=== PATIENT | female | born 1980 | race African-American/Black ===

== ENCOUNTER 2018-01-01 05:41 | Emergency (ER) | payer MEDICARE ==
[~2018-01-01] VITALS: Ht 167.6 cm; Wt 59.0 kg
--- OUTSIDE RECORDS SUMMARY | 2018-01-01 05:44 | XMS REPORT ---
Author Author [facility] Address Unknown Phone Unavailable Care Team Providers Care Home Energy Auditor Name Role Phone TROY TREVINO Unavailable Unavailable VENKATA MONTANEZ Unavailable Unavailable PHILIPP LAIRD Unavailable Unavailable FADUMO, LIZZY Unavailable Unavailable Problems This patient has no known problems. Allergies, Adverse Reactions, Alerts This patient has no known allergies or adverse reactions. Medications This patient has no known medications. Results Test Description Test Time Test Comments Text Results Atomic Results Result Comments BLOOD CULTURE 2017-11-19 10:00:00 CULTURE (BEAKER) (test rrfm=7196) No growth in 5 days CBC W/PLT COUNT & AUTO [id number] 13:24:00* Test Item Value Reference Range Comments WHITE BLOOD CELL COUNT (BEAKER) (test mlqw=507) 14.0 K/ L 3.5-10.5 RED BLOOD CELL COUNT (BEAKER) (test fjih=081) 2.18 M/ L 3.93-5.22 HEMOGLOBIN (BEAKER) (test nlvj=402) 7.6 GM/DL 11.2-15.7 HEMATOCRIT (BEAKER) (test qwxp=475) 21.3 % 34.1-44.9 MEAN CORPUSCULAR VOLUME (BEAKER) (test xczc=890) 97.7 fL 79.4-94.8 MEAN CORPUSCULAR HEMOGLOBIN (BEAKER) (test uwlk=310) 34.9 pg 25.6-32.2 MEAN CORPUSCULAR HEMOGLOBIN CONC (BEAKER) (test ewnd=430) 35.7 GM/DL 32.2- 35.5 RED CELL DISTRIBUTION WIDTH (BEAKER) (test qjji=847) 19.6 % 11.7-14.4 PLATELET COUNT (BEAKER) (test gctd=976) 321 K/CU MM 150-450 MEAN PLATELET VOLUME (BEAKER) (test whdw=298) 10.5 fL 9.4-12.3 NUCLEATED RED BLOOD CELLS (BEAKER) (test hwvw=757) 2 /100 WBC 0-0 NEUTROPHILS RELATIVE PERCENT (BEAKER) (test bbgq=879) 44 % LYMPHOCYTES RELATIVE PERCENT (BEAKER) (test pjsb=835) 41 % MONOCYTES RELATIVE PERCENT (BEAKER) (test avvh=872) 10 % EOSINOPHILS RELATIVE PERCENT (BEAKER) (test lijy=593) 4 % BASOPHILS RELATIVE PERCENT (BEAKER) (test mkij=549) 1 % NEUTROPHILS ABSOLUTE COUNT (BEAKER) (test mxpv=018) 6.10 K/ L 1.56-6.13 LYMPHOCYTES ABSOLUTE COUNT (BEAKER) (test sucq=871) 5.80 K/ L 1.18-3.74 MONOCYTES ABSOLUTE COUNT (BEAKER) (test ijgc=119) 1.36 K/ L 0.24-0.36 EOSINOPHILS ABSOLUTE COUNT (BEAKER) (test pvfe=898) 0.57 K/ L 0.04-0.36 BASOPHILS ABSOLUTE COUNT (BEAKER) (test tzpp=324) 0.07 K/ L 0.01-0.08 IMMATURE GRANULOCYTES-RELATIVE PERCENT (BEAKER) (test zqzt=4898) 1 % 0-1 (MANUAL DIFFERENTIAL)2017-11-18 13:24:00* Test Item Value Reference Range Comments TOTAL COUNTED (BEAKER) (test ryfm=9067) WBC MORPHOLOGY (BEAKER) (test dokq=630) Normal PLT MORPHOLOGY (BEAKER) (test jkbp=829) Normal POLYCHROMATOPHILLIC RBCS(BEAKER) (test lqgs=071) 1+ few SICKLE CELLS (BEAKER) (test anar=730) 3+ many TARGET CELLS (BEAKER) (test ponm=020) 1+ few [id number] 07:15:00* Test Item Value Reference Range Comments MAGNESIUM (BEAKER) (test hoqu=387) 1.7 mg/dL 1.6-2.6 BASIC METABOLIC [id number] 07:15:00* Test Item Value Reference Range Comments SODIUM (BEAKER) (test uzaw=241) 136 meq/L 136-145 POTASSIUM (BEAKER) (test myup=445) 3.5 meq/L 3.5-5.1 CHLORIDE (BEAKER) (test ofxq=572) 108 meq/L 98-107 CO2 (BEAKER) (test noob=255) 21 meq/L 22-29 BLOOD UREA NITROGEN (BEAKER) (test uqqr=776) 8 mg/dL 7-21 CREATININE (BEAKER) (test wzyo=247) 0.50 mg/dL 0.57-1.25 GLUCOSE RANDOM (BEAKER) (test dkmi=124) 80 mg/dL 70-105 CALCIUM (BEAKER) (test xexp=922) 8.9 mg/dL 8.4-10.2 EGFR (BEAKER) (test qonf=2922) 170 mL/min/1.73 sq m ESTIMATED GFR IS NOT ACCURATE CREATININE CLEARANCE IN PREDICTING GLOMERULAR FILTRATION RATE. ESTIMATED GFR IS NOT APPLICABLE FOR DIALYSIS PATIENTS. Specimen moderately icteric(MANUAL DIFFERENTIAL)2017-11-17 21:58:00* Test Item Value Reference Range Comments TOTAL COUNTED (BEAKER) (test vmui=6314) WBC MORPHOLOGY (BEAKER) (test uitf=524) Normal PLT MORPHOLOGY (BEAKER) (test kxdv=962) Normal RBC MORPHOLOGY (BEAKER) (test koho=263) Normal [id number] 06:42:00* Test Item Value Reference Range Comments MAGNESIUM (BEAKER) (test uzad=219) 1.8 mg/dL 1.6-2.6 BASIC METABOLIC [id number] 06:42:00* Test Item Value Reference Range Comments SODIUM (BEAKER) (test bprw=240) 136 meq/L 136-145 POTASSIUM (BEAKER) (test kdfw=413) 3.8 meq/L 3.5-5.1 CHLORIDE (BEAKER) (test dhfc=017) 108 meq/L 98-107 CO2 (BEAKER) (test roin=771) 21 meq/L 22-29 BLOOD UREA NITROGEN (BEAKER) (test hnkd=603) 9 mg/dL 7-21 CREATININE (BEAKER) (test dqgw=716) 0.52 mg/dL 0.57-1.25 GLUCOSE RANDOM (BEAKER) (test oscl=436) 88 mg/dL 70-105 CALCIUM (BEAKER) (test uplz=554) 8.9 mg/dL 8.4-10.2 EGFR (BEAKER) (test ator=5476) 163 mL/min/1.73 sq m ESTIMATED GFR IS NOT ACCURATE CREATININE CLEARANCE IN PREDICTING GLOMERULAR FILTRATION RATE. ESTIMATED GFR IS NOT APPLICABLE FOR DIALYSIS PATIENTS. Specimen slightly ictericCBC W/PLT COUNT & AUTO [id number] 06:17:00 * Test Item Value Reference Range Comments WHITE BLOOD CELL COUNT (BEAKER) (test mdcu=095) 14.8 K/ L 3.5-10.5 RED BLOOD CELL COUNT (BEAKER) (test mszb=151) 2.02 M/ L 3.93-5.22 HEMOGLOBIN (BEAKER) (test qcmn=190) 7.2 GM/DL 11.2-15.7 HEMATOCRIT (BEAKER) (test usvo=527) 20.1 % 34.1-44.9 MEAN CORPUSCULAR VOLUME (BEAKER) (test retc=155) 99.5 fL 79.4-94.8 MEAN CORPUSCULAR HEMOGLOBIN (BEAKER) (test hnrf=759) 35.6 pg 25.6-32.2 MEAN CORPUSCULAR HEMOGLOBIN CONC (BEAKER) (test jpbm=799) 35.8 GM/DL 32.2- 35.5 RED CELL DISTRIBUTION WIDTH (BEAKER) (test lcsw=992) 20.0 % 11.7-14.4 PLATELET COUNT (BEAKER) (test pyye=694) 274 K/CU MM 150-450 MEAN PLATELET VOLUME (BEAKER) (test eelm=671) 10.5 fL 9.4-12.3 NUCLEATED RED BLOOD CELLS (BEAKER) (test snoh=266) 2 /100 WBC 0-0 NEUTROPHILS RELATIVE PERCENT (BEAKER) (test evdr=288) 42 % LYMPHOCYTES RELATIVE PERCENT (BEAKER) (test jmpe=773) 44 % MONOCYTES RELATIVE PERCENT (BEAKER) (test xdus=103) 9 % EOSINOPHILS RELATIVE PERCENT (BEAKER) (test xdck=169) 3 % BASOPHILS RELATIVE PERCENT (BEAKER) (test xyql=004) 0 % NEUTROPHILS ABSOLUTE COUNT (BEAKER) (test lowk=330) 6.25 K/ L 1.56-6.13 LYMPHOCYTES ABSOLUTE COUNT (BEAKER) (test kndu=780) 6.51 K/ L 1.18-3.74 MONOCYTES ABSOLUTE COUNT (BEAKER) (test xapq=555) 1.32 K/ L 0.24-0.36 EOSINOPHILS ABSOLUTE COUNT (BEAKER) (test bdqv=147) 0.49 K/ L 0.04-0.36 BASOPHILS ABSOLUTE COUNT (BEAKER) (test cwdo=290) 0.06 K/ L 0.01-0.08 IMMATURE GRANULOCYTES-RELATIVE PERCENT (BEAKER) (test juwf=5791) 1 % 0-1 CBC W/PLT COUNT & AUTO [id number] 12:59:00* Test Item Value Reference Range Comments WHITE BLOOD CELL COUNT (BEAKER) (test gakn=514) 14.3 K/ L 3.5-10.5 RED BLOOD CELL COUNT (BEAKER) (test mpye=001) 2.03 M/ L 3.93-5.22 HEMOGLOBIN (BEAKER) (test zrle=574) 7.1 GM/DL 11.2-15.7 HEMATOCRIT (BEAKER) (test vicg=755) 20.0 % 34.1-44.9 MEAN CORPUSCULAR VOLUME (BEAKER) (test nyws=937) 98.5 fL 79.4-94.8 MEAN CORPUSCULAR HEMOGLOBIN (BEAKER) (test vvsa=251) 35.0 pg 25.6-32.2 MEAN CORPUSCULAR HEMOGLOBIN CONC (BEAKER) (test ocfz=335) 35.5 GM/DL 32.2- 35.5 RED CELL DISTRIBUTION WIDTH (BEAKER) (test ccyl=288) 20.1 % 11.7-14.4 PLATELET COUNT (BEAKER) (test afrk=601) 306 K/CU MM 150-450 MEAN PLATELET VOLUME (BEAKER) (test xxgp=395) 10.4 fL 9.4-12.3 NUCLEATED RED BLOOD CELLS (BEAKER) (test kbxk=792) 2 /100 WBC 0-0 NEUTROPHILS RELATIVE PERCENT (BEAKER) (test luys=329) 48 % LYMPHOCYTES RELATIVE PERCENT (BEAKER) (test lzgl=998) 39 % MONOCYTES RELATIVE PERCENT (BEAKER) (test stlb=008) 9 % EOSINOPHILS RELATIVE PERCENT (BEAKER) (test akrz=300) 3 % BASOPHILS RELATIVE PERCENT (BEAKER) (test bgwn=882) 0 % NEUTROPHILS ABSOLUTE COUNT (BEAKER) (test zzkr=982) 6.81 K/ L 1.56-6.13 LYMPHOCYTES ABSOLUTE COUNT (BEAKER) (test gqgd=365) 5.53 K/ L 1.18-3.74 MONOCYTES ABSOLUTE COUNT (BEAKER) (test ijkj=269) 1.27 K/ L 0.24-0.36 EOSINOPHILS ABSOLUTE COUNT (BEAKER) (test jtke=806) 0.45 K/ L 0.04-0.36 BASOPHILS ABSOLUTE COUNT (BEAKER) (test jmcu=204) 0.06 K/ L 0.01-0.08 IMMATURE GRANULOCYTES-RELATIVE PERCENT (BEAKER) (test hmzq=0293) 1 % 0-1 (MANUAL DIFFERENTIAL)2017-11-16 12:59:00* Test Item Value Reference Range Comments TOTAL COUNTED (BEAKER) (test mbeh=2810) PLT MORPHOLOGY (BEAKER) (test jjmp=115) Normal ATYPICAL LYMPHS(BEAKER) (test rzhn=2506) Present POLYCHROMATOPHILLIC RBCS(BEAKER) (test oivh=383) 2+ moderate SICKLE CELLS (BEAKER) (test qelw=311) 2+ moderate TARGET CELLS (BEAKER) (test qrdx=933) 2+ moderate URINE [id number] 12:22:00* Test Item Value Reference Range Comments CULTURE (BEAKER) (test blps=2461) Amikacin (test code=1) Ampicillin + Sulbactam (test code=6) Aztreonam (test code=32) Cefepime (test code=51) Cefoxitin (test code=68) Ceftazidime (test code=27) Ceftriaxone (test code=52) Ertapenem (test code=38) Gentamicin (test code=18) Levofloxacin (test code=22) Meropenem (test code=34) Nitrofurantoin (test code=23) Piperacillin + Tazobactam (test code=29) Tetracycline (test code=2) Tobramycin (test code=25) Trimethoprim + Sulfamethoxazole (test code=47) CULTURE (BEAKER) (test pfsq=9692) >100,000 col/mL Escherichia coli >100,000 col/mL skin floraRETICULOCYTE [id number] 08:04:00* Test Item Value Reference Range Comments RETICULOCYTE COUNT PCT (BEAKER) (test yiye=126) 17.7 % 0.5-1.7 [id number] 07:38:00* Test Item Value Reference Range Comments MAGNESIUM (BEAKER) (test nviu=759) 1.7 mg/dL 1.6-2.6 BASIC METABOLIC [id number] 07:38:00* Test Item Value Reference Range Comments SODIUM (BEAKER) (test vfaw=761) 138 meq/L 136-145 POTASSIUM (BEAKER) (test lqwr=987) 3.7 meq/L 3.5-5.1 CHLORIDE (BEAKER) (test wfmp=185) 108 meq/L 98-107 CO2 (BEAKER) (test xkjf=228) 21 meq/L 22-29 BLOOD UREA NITROGEN (BEAKER) (test oocd=800) 11 mg/dL 7-21 CREATININE (BEAKER) (test lzfd=356) 0.62 mg/dL 0.57-1.25 GLUCOSE RANDOM (BEAKER) (test cjal=598) 97 mg/dL 70-105 CALCIUM (BEAKER) (test yvrv=236) 8.8 mg/dL 8.4-10.2 EGFR (BEAKER) (test dfvn=6936) 133 mL/min/1.73 sq m ESTIMATED GFR IS NOT ACCURATE CREATININE CLEARANCE IN PREDICTING GLOMERULAR FILTRATION RATE. ESTIMATED GFR IS NOT APPLICABLE FOR DIALYSIS PATIENTS. Specimen slightly ictericLACTATE DEHYDROGENASE (LDH)2017-11-16 07:38:00* Test Item Value Reference Range Comments LACTATE DEHYDROGENASE (BEAKER) (test knof=253) 461 U/L 125-220 BASIC METABOLIC [id number] 17:16:00* Test Item Value Reference Range Comments SODIUM (BEAKER) (test hsip=875) 140 meq/L 136-145 POTASSIUM (BEAKER) (test filh=323) 3.6 meq/L 3.5-5.1 CHLORIDE (BEAKER) (test rhbi=503) 107 meq/L 98-107 CO2 (BEAKER) (test slwk=243) 24 meq/L 22-29 BLOOD UREA NITROGEN (BEAKER) (test uciq=840) 7 mg/dL 7-21 CREATININE (BEAKER) (test ysyn=195) 0.56 mg/dL 0.57-1.25 GLUCOSE RANDOM (BEAKER) (test viir=295) 103 mg/dL 70-105 CALCIUM (BEAKER) (test mspe=308) 9.2 mg/dL 8.4-10.2 EGFR (BEAKER) (test mlpb=5443) 149 mL/min/1.73 sq m ESTIMATED GFR IS NOT ACCURATE CREATININE CLEARANCE IN PREDICTING GLOMERULAR FILTRATION RATE. ESTIMATED GFR IS NOT APPLICABLE FOR DIALYSIS PATIENTS. Specimen slightly [id number] 17:05:00* Test Item Value Reference Range Comments MAGNESIUM (BEAKER) (test yqhf=985) 1.7 mg/dL 1.6-2.6 URINALYSIS W/ [id number] 06:25:00* Test Item Value Reference Range Comments COLOR (BEAKER) (test mpvd=480) Yellow CLARITY (BEAKER) (test ninp=081) Clear SPECIFIC GRAVITY UA (BEAKER) (test oypf=131) 1.008 1.001-1.035 PH UA (BEAKER) (test ygyu=425) 7.0 5.0-8.0 PROTEIN UA (BEAKER) (test nnyz=394) 50 mg/dL Negative GLUCOSE UA (BEAKER) (test hari=179) Negative Negative KETONES UA (BEAKER) (test lhbk=856) Negative Negative BILIRUBIN UA (BEAKER) (test eqtx=368) Negative Negative BLOOD UA (BEAKER) (test laii=212) Small Negative NITRITE UA (BEAKER) (test ozhl=554) Negative Negative LEUKOCYTE ESTERASE UA (BEAKER) (test lebr=469) Negative Negative UROBILINOGEN UA (BEAKER) (test sfoz=408) 6.0 mg/dL 0.2-1.0 RBC UA (BEAKER) (test xjey=191) 2 /HPF WBC UA (BEAKER) (test kswt=957) < /HPF BACTERIA (BEAKER) (test pelv=989) Occasional SQUAMOUS EPITHELIAL (BEAKER) (test reil=322) 1 /HPF SOURCE(BEAKER) (test haqf=5532) Urine, Clean Catch RAD, CHEST, 1 VIEW, NON [id number] 06:00:00Reason for exam:->sobIs the patient ?->NoShould this be performed at the bedside?->YesFINAL REPORT EXAMINATION: AP PORTABLE CHEST RADIOGRAPH CLINICAL INDICATION: Shortness of breath IMPRESSION: Compared with 10/15/2017. Tip of the left upper extremity Port-A-Cath projects along the expected course of the superior vena cava. Thin relatively stable reticular opacities are again noted in both lungs, most conspicuous at the lung bases. No evidence of new lung consolidation or pneumothorax. Subtle blunting the right costophrenic sulcus is again noted. Cardiac and mediastinal contours are unchanged. No evidence of a pneumothorax. Signed: Jovani Monae MDReport Verified Date/Time: 11/14/2017 06: 00:33 Reading Location: [address] Reading Room - GLUCOSE [id number] 02:47:00* Test Item Value Reference Range Comments POC-GLUCOSE METER (BEAKER) (test jobj=8147) 130 mg/dL 70-110 TESTED AT [facility] [address] [facility] [address] CBC W/PLT COUNT & AUTO [id number] 01:19:00* Test Item Value Reference Range Comments WHITE BLOOD CELL COUNT (BEAKER) (test xnwo=274) 15.2 K/ L 3.5-10.5 RED BLOOD CELL COUNT (BEAKER) (test wolt=674) 2.28 M/ L 3.93-5.22 HEMOGLOBIN (BEAKER) (test dsla=605) 8.0 GM/DL 11.2-15.7 HEMATOCRIT (BEAKER) (test upiu=813) 23.1 % 34.1-44.9 MEAN CORPUSCULAR VOLUME (BEAKER) (test vkby=615) 101.3 fL 79.4-94.8 MEAN CORPUSCULAR HEMOGLOBIN (BEAKER) (test yiii=131) 35.1 pg 25.6-32.2 MEAN CORPUSCULAR HEMOGLOBIN CONC (BEAKER) (test aflv=477) 34.6 GM/DL 32.2- 35.5 RED CELL DISTRIBUTION WIDTH (BEAKER) (test pgfu=535) 22.1 % 11.7-14.4 PLATELET COUNT (BEAKER) (test cufm=532) 341 K/CU MM 150-450 MEAN PLATELET VOLUME (BEAKER) (test ajan=563) 10.0 fL 9.4-12.3 NUCLEATED RED BLOOD CELLS (BEAKER) (test ecjd=194) 2 /100 WBC 0-0 IMMATURE GRANULOCYTES-RELATIVE PERCENT (BEAKER) (test bmib=3704) 1 % 0-1 (MANUAL DIFFERENTIAL)2017-11-14 01:19:00* Test Item Value Reference Range Comments NEUTROPHILS - REL (DIFF) (BEAKER) (test ymvx=9414) 53 % LYMPHOCYTES - REL (DIFF) (BEAKER) (test loiu=6991) 31 % MONOCYTES - REL (DIFF) (BEAKER) (test fnzb=5311) 4 % EOSINOPHILS - REL (DIFF) (BEAKER) (test gkqv=7423) 6 % BASOPHILS - REL (DIFF) (BEAKER) (test hobg=1924) 1 % BANDS - REL (DIFF) (BEAKER) (test erya=1789) 5 % 0-10 NEUTROPHILS - ABS (DIFF) (BEAKER) (test ouat=4034) 8.06 K/ L 1.80-8.00 LYMPHOCYTES - ABS (DIFF) (BEAKER) (test rzmx=0985) 4.71 K/ L 1.48-4.50 MONOCYTES - ABS (DIFF) (BEAKER) (test rhbn=2115) 0.61 K/ L 0.00-1.30 EOSINOPHILS - ABS (DIFF) (BEAKER) (test tjcb=2688) 0.91 K/ L 0.00-0.50 BASOPHILS - ABS (DIFF) (BEAKER) (test mbow=3206) 0.15 K/ L 0.00-0.20 BANDS-ABS (DIFF) (BEAKER) (test mktk=1949) 0.8 K/ L 0.0-0.8 TOTAL COUNTED (BEAKER) (test simt=3197) 100 BANDS + SEGMENTED NEUTROPHILS (BEAKER) (test etee=3402) 8.82 MANUAL NRBC PER 100 CELLS (BEAKER) (test wjpq=7297) 4 /100 WBC 0-0 WBC MORPHOLOGY (BEAKER) (test szgo=442) Normal PLT MORPHOLOGY (BEAKER) (test rivm=342) Normal SCHISTOCYTES (BEAKER) (test rocx=578) 2+ moderate ANISOCYTOSIS (BEAKER) (test ithz=952) 3+ many HYPOCHROMIA (BEAKER) (test zepw=613) 1+ few MICROCYTES (BEAKER) (test olyi=375) 2+ moderate OVALOCYTES (BEAKER) (test fqhx=605) 2+ moderate POIKILOCYTES (BEAKER) (test wyfj=086) 3+ many POLYCHROMATOPHILLIC RBCS(BEAKER) (test qibj=693) 4+ marked RBC FRAGMENTS (BEAKER) (test xxqf=203) Slight SICKLE CELLS (BEAKER) (test qlhl=480) 2+ moderate BASIC METABOLIC [id number] 00:43:00* Test Item Value Reference Range Comments SODIUM (BEAKER) (test rxir=608) 141 meq/L 136-145 POTASSIUM (BEAKER) (test ushr=581) 3.9 meq/L 3.5-5.1 Specimen slightly hemolyzed CHLORIDE (BEAKER) (test konc=580) 117 meq/L 98-107 CO2 (BEAKER) (test nhjw=184) 16 meq/L 22-29 BLOOD UREA NITROGEN (BEAKER) (test yzgw=066) 7 mg/dL 7-21 CREATININE (BEAKER) (test zfvi=638) 0.45 mg/dL 0.57-1.25 Specimen slightly hemolyzed GLUCOSE RANDOM (BEAKER) (test ssam=309) 66 mg/dL 70-105 CALCIUM (BEAKER) (test srma=781) 6.7 mg/dL 8.4-10.2 EGFR (BEAKER) (test rgon=3108) 192 mL/min/1.73 sq m ESTIMATED GFR IS NOT ACCURATE CREATININE CLEARANCE IN PREDICTING GLOMERULAR FILTRATION RATE. ESTIMATED GFR IS NOT APPLICABLE FOR DIALYSIS PATIENTS. Specimen slightly ictericRETICULOCYTE [id number] 00:25:00* Test Item Value Reference Range Comments RETICULOCYTE COUNT PCT (BEAKER) (test zxfa=123) 17.5 % 0.5-1.7 POCT-LACTIC ACID, [id number] 12:06:00* Test Item Value Reference Range Comments POC-LACTIC ACID, VENOUS (BEAKER) (test htjm=1777) < mmol/L 0.9-1.7 OUTSIDE MEASURING RANGETESTED AT [facility] [address] [facility] [address] CBC W/PLT COUNT & AUTO [id number] 11:24:00* Test Item Value Reference Range Comments WHITE BLOOD CELL COUNT (BEAKER) (test gmxh=754) 17.9 K/ L 3.5-10.5 RED BLOOD CELL COUNT (BEAKER) (test xlqa=768) 2.28 M/ L 3.93-5.22 HEMOGLOBIN (BEAKER) (test erif=770) 7.9 GM/DL 11.2-15.7 HEMATOCRIT (BEAKER) (test zdac=479) 22.3 % 34.1-44.9 MEAN CORPUSCULAR VOLUME (BEAKER) (test aprm=825) 97.8 fL 79.4-94.8 MEAN CORPUSCULAR HEMOGLOBIN (BEAKER) (test kwnk=822) 34.6 pg 25.6-32.2 MEAN CORPUSCULAR HEMOGLOBIN CONC (BEAKER) (test pucj=819) 35.4 GM/DL 32.2- 35.5 RED CELL DISTRIBUTION WIDTH (BEAKER) (test wnbl=109) 20.3 % 11.7-14.4 PLATELET COUNT (BEAKER) (test wjck=529) 339 K/CU MM 150-450 MEAN PLATELET VOLUME (BEAKER) (test ctwd=225) 10.5 fL 9.4-12.3 NUCLEATED RED BLOOD CELLS (BEAKER) (test isym=656) 2 /100 WBC 0-0 NEUTROPHILS RELATIVE PERCENT (BEAKER) (test bara=817) 45 % LYMPHOCYTES RELATIVE PERCENT (BEAKER) (test eolw=373) 42 % MONOCYTES RELATIVE PERCENT (BEAKER) (test pogd=866) 10 % EOSINOPHILS RELATIVE PERCENT (BEAKER) (test gwcl=151) 1 % BASOPHILS RELATIVE PERCENT (BEAKER) (test uhmb=852) 0 % NEUTROPHILS ABSOLUTE COUNT (BEAKER) (test thbl=059) 8.08 K/ L 1.56-6.13 LYMPHOCYTES ABSOLUTE COUNT (BEAKER) (test sqcp=787) 7.54 K/ L 1.18-3.74 MONOCYTES ABSOLUTE COUNT (BEAKER) (test urqv=930) 1.82 K/ L 0.24-0.36 EOSINOPHILS ABSOLUTE COUNT (BEAKER) (test mtpa=888) 0.24 K/ L 0.04-0.36 BASOPHILS ABSOLUTE COUNT (BEAKER) (test sfpg=092) 0.06 K/ L 0.01-0.08 IMMATURE GRANULOCYTES-RELATIVE PERCENT (BEAKER) (test ojmp=9752) 1 % 0-1 (MANUAL DIFFERENTIAL)2017-10-16 11:24:00* Test Item Value Reference Range Comments TOTAL COUNTED (BEAKER) (test ktsr=1513) PLT MORPHOLOGY (BEAKER) (test lmsa=425) Normal ATYPICAL LYMPHS(BEAKER) (test zslw=1247) Present BRAUN-JOLLY BODIES (BEAKER) (test ujzk=623) Present POLYCHROMATOPHILLIC RBCS(BEAKER) (test ybpe=531) 2+ moderate SICKLE CELLS (BEAKER) (test fzkc=774) 3+ many TARGET CELLS (BEAKER) (test ariz=794) 2+ moderate BASIC METABOLIC [id number] 09:30:00* Test Item Value Reference Range Comments SODIUM (BEAKER) (test jmad=760) 139 meq/L 136-145 POTASSIUM (BEAKER) (test nqft=376) 4.0 meq/L 3.5-5.1 CHLORIDE (BEAKER) (test pahb=919) 107 meq/L 98-107 CO2 (BEAKER) (test qton=877) 24 meq/L 22-29 BLOOD UREA NITROGEN (BEAKER) (test ncew=706) 11 mg/dL 7-21 CREATININE (BEAKER) (test buyq=046) 0.66 mg/dL 0.57-1.25 GLUCOSE RANDOM (BEAKER) (test qmhv=281) 88 mg/dL 70-105 CALCIUM (BEAKER) (test bzwd=476) 9.5 mg/dL 8.4-10.2 EGFR (BEAKER) (test atdw=1510) 124 mL/min/1.73 sq m ESTIMATED GFR IS NOT ACCURATE CREATININE CLEARANCE IN PREDICTING GLOMERULAR FILTRATION RATE. ESTIMATED GFR IS NOT APPLICABLE FOR DIALYSIS PATIENTS. Specimen slightly ictericRETICULOCYTE [id number] 08:38:00* Test Item Value Reference Range Comments RETICULOCYTE COUNT PCT (BEAKER) (test gmwg=542) 17.2 % 0.5-1.7 RAD, CHEST, 2 [id number] 23:38:00Reason for exam:->SICKLE CELL PAIN CRISISReason for exam:->BACK PAINReason for exam:->FINAL REPORT Chest, two views HISTORY: Sickle cell COMPARISON: 07/25/1717 DISCUSSION : Mild interstitial edema. No focal consolidation. No large pleural effusion or pneumothorax. Cardiomediastinal silhouette is within normal limits. There is mild eventration of the left hemidiaphragm. Left-sided arm port catheter tip terminates at the SVC/RA junction. Surgical clips in the right upper quadrant. IMPRESSION: Mild interstitial edema. No focal consolidation. Signed: Lopez [place] Verified Date/Time: 10/15/2017 23:38:18 Reading Location: [facility] B1 [id number] Consult Reading Room W/PLT COUNT & AUTO [id number] 10:19:00 * Test Item Value Reference Range Comments WHITE BLOOD CELL COUNT (BEAKER) (test ovzk=533) 14.0 K/ L 3.5-10.5 RED BLOOD CELL COUNT (BEAKER) (test dkdj=633) 2.31 M/ L 3.93-5.22 HEMOGLOBIN (BEAKER) (test mnya=037) 7.5 GM/DL 11.2-15.7 HEMATOCRIT (BEAKER) (test pxnb=856) 21.9 % 34.1-44.9 MEAN CORPUSCULAR VOLUME (BEAKER) (test oiop=317) 94.8 fL 79.4-94.8 MEAN CORPUSCULAR HEMOGLOBIN (BEAKER) (test amrh=061) 32.5 pg 25.6-32.2 MEAN CORPUSCULAR HEMOGLOBIN CONC (BEAKER) (test ohly=089) 34.2 GM/DL 32.2- 35.5 RED CELL DISTRIBUTION WIDTH (BEAKER) (test vhsk=237) 19.1 % 11.7-14.4 PLATELET COUNT (BEAKER) (test gloi=413) 401 K/CU MM 150-450 MEAN PLATELET VOLUME (BEAKER) (test xbcv=875) 10.5 fL 9.4-12.3 NUCLEATED RED BLOOD CELLS (BEAKER) (test nskm=910) 1 /100 WBC 0-0 IMMATURE GRANULOCYTES-RELATIVE PERCENT (BEAKER) (test aoiy=5656) 1 % 0-1 (MANUAL DIFFERENTIAL)2017-08-05 10:19:00* Test Item Value Reference Range Comments NEUTROPHILS - REL (DIFF) (BEAKER) (test pvaz=3077) 40 % LYMPHOCYTES - REL (DIFF) (BEAKER) (test vjsc=6909) 46 % MONOCYTES - REL (DIFF) (BEAKER) (test xhzw=5407) 7 % EOSINOPHILS - REL (DIFF) (BEAKER) (test qoay=8741) 4 % BASOPHILS - REL (DIFF) (BEAKER) (test etxs=6277) 2 % BANDS - REL (DIFF) (BEAKER) (test aowx=9396) 1 % 0-10 NEUTROPHILS - ABS (DIFF) (BEAKER) (test jtxp=1748) 5.60 K/ L 1.80-8.00 LYMPHOCYTES - ABS (DIFF) (BEAKER) (test mlhl=6629) 6.44 K/ L 1.48-4.50 MONOCYTES - ABS (DIFF) (BEAKER) (test myhe=6428) 0.98 K/ L 0.00-1.30 EOSINOPHILS - ABS (DIFF) (BEAKER) (test ygir=4869) 0.56 K/ L 0.00-0.50 BASOPHILS - ABS (DIFF) (BEAKER) (test nuff=2162) 0.28 K/ L 0.00-0.20 BANDS-ABS (DIFF) (BEAKER) (test ducx=4207) 0.1 K/ L 0.0-0.8 TOTAL COUNTED (BEAKER) (test fijq=3649) 100 BANDS + SEGMENTED NEUTROPHILS (BEAKER) (test hdkq=5263) 5.74 WBC MORPHOLOGY (BEAKER) (test vjou=115) Normal PLT MORPHOLOGY (BEAKER) (test zaca=831) Normal ANISOCYTOSIS (BEAKER) (test wwxn=226) 3+ many MACROCYTES (BEAKER) (test fqkv=395) 3+ many POIKILOCYTES (BEAKER) (test oemu=993) 1+ few SICKLE CELLS (BEAKER) (test qgvo=689) 3+ many RETICULOCYTE [id number] 07:09:00* Test Item Value Reference Range Comments RETICULOCYTE COUNT PCT (BEAKER) (test bmcq=397) 12.5 % 0.5-1.7 [id number] 05:57:00* Test Item Value Reference Range Comments PHOSPHORUS (BEAKER) (test pncd=535) 3.1 mg/dL 2.3-4.7 [id number] 05:57:00* Test Item Value Reference Range Comments MAGNESIUM (BEAKER) (test mqqk=882) 1.6 mg/dL 1.6-2.6 BASIC METABOLIC [id number] 05:57:00* Test Item Value Reference Range Comments SODIUM (BEAKER) (test sodb=655) 139 meq/L 136-145 POTASSIUM (BEAKER) (test lgwl=593) 3.6 meq/L 3.5-5.1 CHLORIDE (BEAKER) (test apch=530) 111 meq/L 98-107 CO2 (BEAKER) (test rjil=887) 20 meq/L 22-29 BLOOD UREA NITROGEN (BEAKER) (test nute=442) 10 mg/dL 7-21 CREATININE (BEAKER) (test kyoa=884) 0.49 mg/dL 0.57-1.25 GLUCOSE RANDOM (BEAKER) (test qvff=014) 71 mg/dL 70-105 CALCIUM (BEAKER) (test nphl=438) 8.4 mg/dL 8.4-10.2 EGFR (BEAKER) (test bckq=1639) 174 mL/min/1.73 sq m ESTIMATED GFR IS NOT ACCURATE CREATININE CLEARANCE IN PREDICTING GLOMERULAR FILTRATION RATE. ESTIMATED GFR IS NOT APPLICABLE FOR DIALYSIS PATIENTS. Specimen slightly ictericRETICULOCYTE [id number] 12:49:00* Test Item Value Reference Range Comments RETICULOCYTE COUNT PCT (BEAKER) (test mumg=317) 13.5 % 0.5-1.7 CBC W/PLT COUNT & AUTO [id number] 10:57:00* Test Item Value Reference Range Comments WHITE BLOOD CELL COUNT (BEAKER) (test rkap=881) 13.1 K/ L 3.5-10.5 RED BLOOD CELL COUNT (BEAKER) (test sngh=298) 2.34 M/ L 3.93-5.22 HEMOGLOBIN (BEAKER) (test ohkm=660) 7.6 GM/DL 11.2-15.7 HEMATOCRIT (BEAKER) (test pmrl=684) 22.1 % 34.1-44.9 MEAN CORPUSCULAR VOLUME (BEAKER) (test qybl=644) 94.4 fL 79.4-94.8 MEAN CORPUSCULAR HEMOGLOBIN (BEAKER) (test qvci=902) 32.5 pg 25.6-32.2 MEAN CORPUSCULAR HEMOGLOBIN CONC (BEAKER) (test jqeh=611) 34.4 GM/DL 32.2- 35.5 RED CELL DISTRIBUTION WIDTH (BEAKER) (test gwaz=972) 19.8 % 11.7-14.4 PLATELET COUNT (BEAKER) (test cocq=213) 401 K/CU MM 150-450 MEAN PLATELET VOLUME (BEAKER) (test gazq=997) 10.2 fL 9.4-12.3 NUCLEATED RED BLOOD CELLS (BEAKER) (test oplt=091) 1 /100 WBC 0-0 IMMATURE GRANULOCYTES-RELATIVE PERCENT (BEAKER) (test hvyv=2009) 1 % 0-1 (MANUAL DIFFERENTIAL)2017-08-04 10:57:00* Test Item Value Reference Range Comments NEUTROPHILS - REL (DIFF) (BEAKER) (test yasa=8947) 29 % LYMPHOCYTES - REL (DIFF) (BEAKER) (test lobw=6680) 56 % MONOCYTES - REL (DIFF) (BEAKER) (test qcgc=5932) 7 % EOSINOPHILS - REL (DIFF) (BEAKER) (test xhob=8773) 4 % BASOPHILS - REL (DIFF) (BEAKER) (test gkrq=5627) 2 % BANDS - REL (DIFF) (BEAKER) (test izpy=0976) 2 % 0-10 NEUTROPHILS - ABS (DIFF) (BEAKER) (test yhjh=6035) 3.80 K/ L 1.80-8.00 LYMPHOCYTES - ABS (DIFF) (BEAKER) (test xzww=2467) 7.34 K/ L 1.48-4.50 MONOCYTES - ABS (DIFF) (BEAKER) (test ejfz=5922) 0.92 K/ L 0.00-1.30 EOSINOPHILS - ABS (DIFF) (BEAKER) (test ikvf=1682) 0.52 K/ L 0.00-0.50 BASOPHILS - ABS (DIFF) (BEAKER) (test snrk=4891) 0.26 K/ L 0.00-0.20 BANDS-ABS (DIFF) (BEAKER) (test lfvu=5837) 0.3 K/ L 0.0-0.8 TOTAL COUNTED (BEAKER) (test jafh=9412) 100 BANDS + SEGMENTED NEUTROPHILS (BEAKER) (test sdtx=1463) 4.06 MANUAL NRBC PER 100 CELLS (BEAKER) (test mjpv=4757) 2 /100 WBC 0-0 WBC MORPHOLOGY (BEAKER) (test vnmu=358) Normal PLT MORPHOLOGY (BEAKER) (test fvzp=766) Normal BRAUN-JOLLY BODIES (BEAKER) (test czsk=152) 1+ few SICKLE CELLS (BEAKER) (test gyzm=420) 2+ moderate [id number] 06:32:00* Test Item Value Reference Range Comments PHOSPHORUS (BEAKER) (test vclm=811) 3.8 mg/dL 2.3-4.7 [id number] 06:32:00* Test Item Value Reference Range Comments MAGNESIUM (BEAKER) (test oopc=486) 1.9 mg/dL 1.6-2.6 BASIC METABOLIC [id number] 06:32:00* Test Item Value Reference Range Comments SODIUM (BEAKER) (test nadr=870) 137 meq/L 136-145 POTASSIUM (BEAKER) (test aieu=040) 3.9 meq/L 3.5-5.1 CHLORIDE (BEAKER) (test qodi=612) 109 meq/L 98-107 CO2 (BEAKER) (test hhij=098) 20 meq/L 22-29 BLOOD UREA NITROGEN (BEAKER) (test dilg=205) 10 mg/dL 7-21 CREATININE (BEAKER) (test aqpb=971) 0.52 mg/dL 0.57-1.25 GLUCOSE RANDOM (BEAKER) (test iskh=149) 87 mg/dL 70-105 CALCIUM (BEAKER) (test dxxl=644) 8.8 mg/dL 8.4-10.2 EGFR (BEAKER) (test wers=8684) 163 mL/min/1.73 sq m ESTIMATED GFR IS NOT ACCURATE CREATININE CLEARANCE IN PREDICTING GLOMERULAR FILTRATION RATE. ESTIMATED GFR IS NOT APPLICABLE FOR DIALYSIS PATIENTS. Specimen slightly ictericCBC W/PLT COUNT & AUTO [id number] 09:35:00 * Test Item Value Reference Range Comments WHITE BLOOD CELL COUNT (BEAKER) (test mxqp=543) 14.9 K/ L 3.5-10.5 RED BLOOD CELL COUNT (BEAKER) (test jegh=403) 2.39 M/ L 3.93-5.22 HEMOGLOBIN (BEAKER) (test zgbt=060) 7.9 GM/DL 11.2-15.7 HEMATOCRIT (BEAKER) (test adai=319) 22.4 % 34.1-44.9 MEAN CORPUSCULAR VOLUME (BEAKER) (test nhvi=939) 93.7 fL 79.4-94.8 MEAN CORPUSCULAR HEMOGLOBIN (BEAKER) (test agdn=962) 33.1 pg 25.6-32.2 MEAN CORPUSCULAR HEMOGLOBIN CONC (BEAKER) (test xtpm=310) 35.3 GM/DL 32.2- 35.5 RED CELL DISTRIBUTION WIDTH (BEAKER) (test brgz=144) 19.6 % 11.7-14.4 PLATELET COUNT (BEAKER) (test nbuo=486) 399 K/CU MM 150-450 MEAN PLATELET VOLUME (BEAKER) (test hujb=795) 10.4 fL 9.4-12.3 NUCLEATED RED BLOOD CELLS (BEAKER) (test ljyb=733) 1 /100 WBC 0-0 NEUTROPHILS RELATIVE PERCENT (BEAKER) (test drhk=630) 38 % LYMPHOCYTES RELATIVE PERCENT (BEAKER) (test fxmy=281) 42 % MONOCYTES RELATIVE PERCENT (BEAKER) (test wqhy=403) 8 % EOSINOPHILS RELATIVE PERCENT (BEAKER) (test ugmx=247) 10 % BASOPHILS RELATIVE PERCENT (BEAKER) (test jujb=468) 0 % NEUTROPHILS ABSOLUTE COUNT (BEAKER) (test xtos=437) 5.70 K/ L 1.56-6.13 LYMPHOCYTES ABSOLUTE COUNT (BEAKER) (test rbkb=669) 6.27 K/ L 1.18-3.74 MONOCYTES ABSOLUTE COUNT (BEAKER) (test qwwu=995) 1.22 K/ L 0.24-0.36 EOSINOPHILS ABSOLUTE COUNT (BEAKER) (test efnh=868) 1.55 K/ L 0.04-0.36 BASOPHILS ABSOLUTE COUNT (BEAKER) (test pwdc=963) 0.05 K/ L 0.01-0.08 IMMATURE GRANULOCYTES-RELATIVE PERCENT (BEAKER) (test xpbv=3664) 1 % 0-1 (MANUAL DIFFERENTIAL)2017-08-03 09:35:00* Test Item Value Reference Range Comments TOTAL COUNTED (BEAKER) (test phyl=4658) WBC MORPHOLOGY (BEAKER) (test zlih=575) Normal PLT MORPHOLOGY (BEAKER) (test pgbn=234) Normal OVALOCYTES (BEAKER) (test flld=861) 1+ few POLYCHROMATOPHILLIC RBCS(BEAKER) (test pilj=267) 1+ few SICKLE CELLS (BEAKER) (test ecsb=171) 2+ moderate TARGET CELLS (BEAKER) (test mwsh=692) 2+ moderate [id number] 06:04:00* Test Item Value Reference Range Comments PHOSPHORUS (BEAKER) (test ugwy=980) 3.4 mg/dL 2.3-4.7 [id number] 06:04:00* Test Item Value Reference Range Comments MAGNESIUM (BEAKER) (test klxf=596) 1.9 mg/dL 1.6-2.6 BASIC METABOLIC [id number] 06:04:00* Test Item Value Reference Range Comments SODIUM (BEAKER) (test rpeh=150) 139 meq/L 136-145 POTASSIUM (BEAKER) (test hlxk=075) 3.9 meq/L 3.5-5.1 CHLORIDE (BEAKER) (test piie=212) 111 meq/L 98-107 CO2 (BEAKER) (test wkqo=938) 21 meq/L 22-29 BLOOD UREA NITROGEN (BEAKER) (test phbz=899) 8 mg/dL 7-21 CREATININE (BEAKER) (test hdrs=817) 0.53 mg/dL 0.57-1.25 GLUCOSE RANDOM (BEAKER) (test nycr=343) 81 mg/dL 70-105 CALCIUM (BEAKER) (test dnlp=504) 8.8 mg/dL 8.4-10.2 EGFR (BEAKER) (test pdys=6948) 159 mL/min/1.73 sq m ESTIMATED GFR IS NOT ACCURATE CREATININE CLEARANCE IN PREDICTING GLOMERULAR FILTRATION RATE. ESTIMATED GFR IS NOT APPLICABLE FOR DIALYSIS PATIENTS. Specimen slightly ictericU/S, ABDOMINAL, [id number] 00:40:00Abdomen limited area? Add comment if clarification is needed.->LiverReason for exam:-> Concern for cirrhosis given fluid overloadFINAL REPORT INDICATION: Concern for cirrhosis given fluid overload COMPARISON: None TECHNIQUE: Real-time transabdominal monge scale and color Doppler ultrasound of the abdominal right upper quadrant. FINDINGS:Liver: Size: 17.9cm. Echogenicity: Normal. Masses/lesions: None. Surface Nodularity: None. Intrahepatic bile ducts: Normal. Common bile duct: 0.5cm. MPV: 1.1cm. Gallbladder: Absent Pancreas: Head and uncinate process: Unremarkable. Body and tail: Not well-seen. Right kidney: Size: 11.5 x 4.5 x 5.9 cm. Parenchyma: Normal echogenicity. No cysts. No stones. Hydronephrosis: None. Ascites: None. Regional Vasculature: The visible abdominal aorta, IVC and hepatic veins are patent. IMPRESSION: Mild hepatomegaly. Otherwise unremarkable sonographic appearance of the liver, without focal lesions or surface nodularity. Signed: JR Todd Robert MDReport Verified Date/Time: 08/03/2017 00:40:19 Reading Location: [facility] B1 C013Y CT Body Reading Room W/PLT COUNT & AUTO [id number] 14:29:00* Test Item Value Reference Range Comments WHITE BLOOD CELL COUNT (BEAKER) (test ktut=669) 16.8 K/ L 3.5-10.5 RED BLOOD CELL COUNT (BEAKER) (test ekia=679) 1.93 M/ L 3.93-5.22 HEMOGLOBIN (BEAKER) (test wqux=907) 6.7 GM/DL 11.2-15.7 HEMATOCRIT (BEAKER) (test nruq=897) 19.1 % 34.1-44.9 MEAN CORPUSCULAR VOLUME (BEAKER) (test xvhh=359) 99.0 fL 79.4-94.8 MEAN CORPUSCULAR HEMOGLOBIN (BEAKER) (test fjih=197) 34.7 pg 25.6-32.2 MEAN CORPUSCULAR HEMOGLOBIN CONC (BEAKER) (test njwn=867) 35.1 GM/DL 32.2- 35.5 RED CELL DISTRIBUTION WIDTH (BEAKER) (test tooa=648) 18.6 % 11.7-14.4 PLATELET COUNT (BEAKER) (test sffo=763) 382 K/CU MM 150-450 MEAN PLATELET VOLUME (BEAKER) (test qwtm=128) 10.6 fL 9.4-12.3 NUCLEATED RED BLOOD CELLS (BEAKER) (test casf=968) 1 /100 WBC 0-0 NEUTROPHILS RELATIVE PERCENT (BEAKER) (test bjlz=318) 39 % LYMPHOCYTES RELATIVE PERCENT (BEAKER) (test rbhc=866) 44 % MONOCYTES RELATIVE PERCENT (BEAKER) (test flrz=026) 8 % EOSINOPHILS RELATIVE PERCENT (BEAKER) (test xcjf=632) 9 % BASOPHILS RELATIVE PERCENT (BEAKER) (test bygv=535) 0 % NEUTROPHILS ABSOLUTE COUNT (BEAKER) (test gijs=195) 6.48 K/ L 1.56-6.13 LYMPHOCYTES ABSOLUTE COUNT (BEAKER) (test vlnt=077) 7.38 K/ L 1.18-3.74 MONOCYTES ABSOLUTE COUNT (BEAKER) (test elgb=747) 1.30 K/ L 0.24-0.36 EOSINOPHILS ABSOLUTE COUNT (BEAKER) (test nhdn=739) 1.51 K/ L 0.04-0.36 BASOPHILS ABSOLUTE COUNT (BEAKER) (test nbqd=392) 0.04 K/ L 0.01-0.08 IMMATURE GRANULOCYTES-RELATIVE PERCENT (BEAKER) (test krym=6039) 1 % 0-1 (MANUAL DIFFERENTIAL)2017-08-02 14:29:00* Test Item Value Reference Range Comments TOTAL COUNTED (BEAKER) (test bqis=6730) WBC MORPHOLOGY (BEAKER) (test mmyf=008) Normal PLT MORPHOLOGY (BEAKER) (test ypka=618) Normal ANISOCYTOSIS (BEAKER) (test bgru=570) 3+ many MACROCYTES (BEAKER) (test zdlr=500) 3+ many POIKILOCYTES (BEAKER) (test ppnn=323) 1+ few POLYCHROMATOPHILLIC RBCS(BEAKER) (test iktw=792) 2+ moderate SICKLE CELLS (BEAKER) (test qwhx=116) 2+ moderate TARGET CELLS (BEAKER) (test xlsy=418) 1+ few BASIC METABOLIC [id number] 07:47:00* Test Item Value Reference Range Comments SODIUM (BEAKER) (test dwuo=635) 140 meq/L 136-145 POTASSIUM (BEAKER) (test nfoa=585) 4.0 meq/L 3.5-5.1 CHLORIDE (BEAKER) (test gwtv=668) 111 meq/L 98-107 CO2 (BEAKER) (test nyej=739) 22 meq/L 22-29 BLOOD UREA NITROGEN (BEAKER) (test hztj=435) 6 mg/dL 7-21 CREATININE (BEAKER) (test gzvb=104) 0.52 mg/dL 0.57-1.25 GLUCOSE RANDOM (BEAKER) (test yvbw=531) 79 mg/dL 70-105 CALCIUM (BEAKER) (test kwya=829) 8.6 mg/dL 8.4-10.2 EGFR (BEAKER) (test ugob=5305) 163 mL/min/1.73 sq m ESTIMATED GFR IS NOT ACCURATE CREATININE CLEARANCE IN PREDICTING GLOMERULAR FILTRATION RATE. ESTIMATED GFR IS NOT APPLICABLE FOR DIALYSIS PATIENTS. Specimen slightly ictericHEPATIC FUNCTION [id number] 07:47:00* Test Item Value Reference Range Comments TOTAL PROTEIN (BEAKER) (test wtvy=124) 7.1 gm/dL 6.0-8.3 ALBUMIN (BEAKER) (test pbxa=8707) 3.7 g/dL 3.5-5.0 BILIRUBIN TOTAL (BEAKER) (test adbq=447) 4.1 mg/dL 0.2-1.2 BILIRUBIN DIRECT (BEAKER) (test fzxu=982) 0.6 mg/dL 0.1-0.5 ALKALINE PHOSPHATASE (BEAKER) (test mjev=439) 86 U/L 40-150 AST (SGOT) (BEAKER) (test umqa=097) 40 U/L 5-34 ALT (SGPT) (BEAKER) (test hanq=731) 35 U/L 6-55 Specimen slightly ictericB-TYPE NATRIURETIC FACTOR (BNP)2017-08-02 07:45:00* Test Item Value Reference Range Comments B-TYPE NATRIURETIC PEPTIDE (BEAKER) (test coph=115) 44 pg/mL 0-100 PROTHROMBIN [id number] 07:22:00* Test Item Value Reference Range Comments PROTIME (BEAKER) (test jihr=474) 15.4 seconds 11.7-14.7 INR (BEAKER) (test fcpm=330) 1.2 <=5.9 RECOMMENDED COUMADIN/WARFARIN INR THERAPY RANGESSTANDARD DOSE: 2.0 - 3.0 Includes: PROPHYLAXIS for venous thrombosis, systemic embolization; TREATMENT for venous thrombosis and/or pulmonary embolus.HIGH RISK: Target INR is 2.5-3.5 for patients with mechanical heart valves.CBC W/PLT COUNT & AUTO [id number] 21:58:00* Test Item Value Reference Range Comments WHITE BLOOD CELL COUNT (BEAKER) (test eevi=135) 17.0 K/ L 3.5-10.5 RED BLOOD CELL COUNT (BEAKER) (test aole=084) 2.23 M/ L 3.93-5.22 HEMOGLOBIN (BEAKER) (test hnbh=842) 7.4 GM/DL 11.2-15.7 HEMATOCRIT (BEAKER) (test lcrj=318) 21.5 % 34.1-44.9 MEAN CORPUSCULAR VOLUME (BEAKER) (test uljh=362) 96.4 fL 79.4-94.8 MEAN CORPUSCULAR HEMOGLOBIN (BEAKER) (test oeit=605) 33.2 pg 25.6-32.2 MEAN CORPUSCULAR HEMOGLOBIN CONC (BEAKER) (test odhu=160) 34.4 GM/DL 32.2- 35.5 RED CELL DISTRIBUTION WIDTH (BEAKER) (test dhsi=510) 18.5 % 11.7-14.4 PLATELET COUNT (BEAKER) (test guis=156) 433 K/CU MM 150-450 MEAN PLATELET VOLUME (BEAKER) (test nghh=998) 10.2 fL 9.4-12.3 NUCLEATED RED BLOOD CELLS (BEAKER) (test gaoa=000) 1 /100 WBC 0-0 IMMATURE GRANULOCYTES-RELATIVE PERCENT (BEAKER) (test buep=2696) 1 % 0-1 (MANUAL DIFFERENTIAL)2017-08-01 21:58:00* Test Item Value Reference Range Comments NEUTROPHILS - REL (DIFF) (BEAKER) (test slgo=4062) 34 % LYMPHOCYTES - REL (DIFF) (BEAKER) (test bkgj=6122) 50 % MONOCYTES - REL (DIFF) (BEAKER) (test jzdb=9860) 3 % EOSINOPHILS - REL (DIFF) (BEAKER) (test vozk=5898) 11 % BASOPHILS - REL (DIFF) (BEAKER) (test lqgb=4830) 1 % ATYPICAL LYMPHOCYTE - REL (DIFF) (BEAKER) (test cwlg=335) 1 % 0-0 NEUTROPHILS - ABS (DIFF) (BEAKER) (test nbbe=0694) 5.78 K/ L 1.80-8.00 LYMPHOCYTES - ABS (DIFF) (BEAKER) (test vhtt=0256) 8.50 K/ L 1.48-4.50 MONOCYTES - ABS (DIFF) (BEAKER) (test hrcn=6385) 0.51 K/ L 0.00-1.30 EOSINOPHILS - ABS (DIFF) (BEAKER) (test nnpc=0304) 1.87 K/ L 0.00-0.50 BASOPHILS - ABS (DIFF) (BEAKER) (test tpjy=2488) 0.17 K/ L 0.00-0.20 ATYPICAL LYMPHOCYTES - ABS (DIFF) (BEAKER) (test aycv=797) 0.17 K/ L 0.00- 0.00 TOTAL COUNTED (BEAKER) (test ucnj=3468) 100 WBC MORPHOLOGY (BEAKER) (test aqnp=168) Normal PLT MORPHOLOGY (BEAKER) (test rniu=674) Normal ANISOCYTOSIS (BEAKER) (test cxhe=227) 3+ many MACROCYTES (BEAKER) (test dvqa=976) 1+ few POIKILOCYTES (BEAKER) (test jeac=709) 3+ many POLYCHROMATOPHILLIC RBCS(BEAKER) (test klmw=856) 2+ moderate SICKLE CELLS (BEAKER) (test ixme=967) 2+ moderate TARGET CELLS (BEAKER) (test ebno=610) 1+ few RETICULOCYTE [id number] 21:14:00* Test Item Value Reference Range Comments RETICULOCYTE COUNT PCT (BEAKER) (test oojk=439) 15.5 % 0.5-1.7 BASIC METABOLIC [id number] 21:06:00* Test Item Value Reference Range Comments SODIUM (BEAKER) (test twom=308) 139 meq/L 136-145 POTASSIUM (BEAKER) (test kbrk=365) 3.8 meq/L 3.5-5.1 CHLORIDE (BEAKER) (test kogq=977) 109 meq/L 98-107 CO2 (BEAKER) (test ljsx=777) 23 meq/L 22-29 BLOOD UREA NITROGEN (BEAKER) (test ulyg=811) 7 mg/dL 7-21 CREATININE (BEAKER) (test xjcq=411) 0.60 mg/dL 0.57-1.25 GLUCOSE RANDOM (BEAKER) (test uydu=728) 85 mg/dL 70-105 CALCIUM (BEAKER) (test daqp=758) 9.5 mg/dL 8.4-10.2 EGFR (BEAKER) (test olab=3879) 138 mL/min/1.73 sq m ESTIMATED GFR IS NOT ACCURATE CREATININE CLEARANCE IN PREDICTING GLOMERULAR FILTRATION RATE. ESTIMATED GFR IS NOT APPLICABLE FOR DIALYSIS PATIENTS. Specimen slightly ictericRAD, CHEST, 1 VIEW, NON [id number] 20:10:00Reason for exam:->SICKLE CELL PAIN CRISISfor 2 daysReason for exam:->chest painIs the patient ?->NoShould this be performed at the bedside?->YesFINAL REPORT Chest one view AP 08/01/2017 8:09 PM CLINICAL HISTORY: SICKLE CELL PAIN CRISISchest pain COMPARISON: 04/23/2017 IMPRESSION: There is a trace right pleural effusion with adjacent basilar atelectasis. The left lung is clear. Cardiomediastinal contours are within normal limits. The central pulmonary vasculature is not engorged. The tip of a left PICC projects over the cavoatrial junction. Signed: Wilton Casanova Verified Date/Time: 08/01 20:10:07 Reading Location: [facility] Radiology Reading Room ALYSIS W/ [id number] 17:05:00* Test Item Value Reference Range Comments COLOR (BEAKER) (test xirj=545) Yellow CLARITY (BEAKER) (test lyed=244) Clear SPECIFIC GRAVITY UA (BEAKER) (test qmmy=141) 1.010 1.001-1.035 PH UA (BEAKER) (test ndty=281) 5.5 5.0-8.0 PROTEIN UA (BEAKER) (test kvid=971) 10 mg/dL Negative GLUCOSE UA (BEAKER) (test fwmc=774) Negative Negative KETONES UA (BEAKER) (test wpcy=239) Negative Negative BILIRUBIN UA (BEAKER) (test gdyv=517) Negative Negative BLOOD UA (BEAKER) (test nkvs=395) Negative Negative NITRITE UA (BEAKER) (test escb=286) Negative Negative LEUKOCYTE ESTERASE UA (BEAKER) (test dafh=208) Negative Negative UROBILINOGEN UA (BEAKER) (test tjap=111) 2.0 mg/dL 0.2-1.0 RBC UA (BEAKER) (test qkns=713) < /HPF WBC UA (BEAKER) (test vrmr=685) < /HPF BACTERIA (BEAKER) (test ifxc=226) Rare MUCUS (BEAKER) (test ossk=0498) Occasional SQUAMOUS EPITHELIAL (BEAKER) (test zyte=854) < /HPF HYALINE CASTS (BEAKER) (test senw=078) 2 /LPF SOURCE(BEAKER) (test afut=7505) Urine, Clean Catch CBC (HEMOGRAM ONLY)2017-04-26 12:11:00* Test Item Value Reference Range Comments WHITE BLOOD CELL COUNT (BEAKER) (test bkej=580) 11.5 K/ L 4.0-10.0 RED BLOOD CELL COUNT (BEAKER) (test qycj=985) 1.97 M/ L 4.00-5.00 HEMOGLOBIN (BEAKER) (test uxle=749) 7.4 GM/DL 12.0-15.0 HEMATOCRIT (BEAKER) (test iofh=548) 21.9 % 36.0-45.0 MEAN CORPUSCULAR VOLUME (BEAKER) (test uhmd=392) 111.0 fL 82.0-99.0 MEAN CORPUSCULAR HEMOGLOBIN (BEAKER) (test iqqt=399) 37.2 pg 27.0-33.0 MEAN CORPUSCULAR HEMOGLOBIN CONC (BEAKER) (test nptw=212) 33.6 GM/DL 32.0- 36.0 RED CELL DISTRIBUTION WIDTH (BEAKER) (test pznz=671) 22.9 % 10.3-14.2 PLATELET COUNT (BEAKER) (test wmnz=141) 347 K/CU MM 150-430 MEAN PLATELET VOLUME (BEAKER) (test dguc=876) 7.4 fL 6.5-10.5 NUCLEATED RED BLOOD CELLS (BEAKER) (test okhy=768) 18 /100 WBC 0-0 0.000.600.000.001.100.000.000.000.000.000.000.900.000.000.000.000.000.000.000.00 0.000.000.000.000.000.000.00CBC W/PLT COUNT & AUTO [id number] 13:04:00* Test Item Value Reference Range Comments WHITE BLOOD CELL COUNT (BEAKER) (test ymik=069) 15.3 K/ L 4.0-10.0 RED BLOOD CELL COUNT (BEAKER) (test xhrs=840) 1.90 M/ L 4.00-5.00 HEMOGLOBIN (BEAKER) (test mvlv=325) 7.1 GM/DL 12.0-15.0 HEMATOCRIT (BEAKER) (test whto=311) 21.0 % 36.0-45.0 MEAN CORPUSCULAR VOLUME (BEAKER) (test lfzw=471) 111.0 fL 82.0-99.0 MEAN CORPUSCULAR HEMOGLOBIN (BEAKER) (test drhw=218) 37.6 pg 27.0-33.0 MEAN CORPUSCULAR HEMOGLOBIN CONC (BEAKER) (test rjor=555) 33.9 GM/DL 32.0- 36.0 RED CELL DISTRIBUTION WIDTH (BEAKER) (test ceeb=575) 20.7 % 10.3-14.2 PLATELET COUNT (BEAKER) (test lbae=965) 322 K/CU MM 150-430 MEAN PLATELET VOLUME (BEAKER) (test vzgl=939) 7.3 fL 6.5-10.5 NUCLEATED RED BLOOD CELLS (BEAKER) (test imza=963) 0 /100 WBC 0-0 0.000.600.000.001.100.000.000.000.000.000.000.900.000.000.000.000.00(MANUAL DIFFERENTIAL)2017-04-25 13:04:00* Test Item Value Reference Range Comments NEUTROPHILS - REL (DIFF) (BEAKER) (test nrdb=6780) 37 % LYMPHOCYTES - REL (DIFF) (BEAKER) (test rtxt=4875) 57 % MONOCYTES - REL (DIFF) (BEAKER) (test ykqc=5343) 5 % EOSINOPHILS - REL (DIFF) (BEAKER) (test etxx=3830) 1 % NEUTROPHILS - ABS (DIFF) (BEAKER) (test ycyw=2064) 5.66 K/ L 1.80-8.00 LYMPHOCYTES - ABS (DIFF) (BEAKER) (test yqoe=8750) 8.72 K/ L 1.48-4.50 MONOCYTES - ABS (DIFF) (BEAKER) (test gonn=3671) 0.77 K/ L 0.00-1.30 EOSINOPHILS - ABS (DIFF) (BEAKER) (test ksnj=1219) 0.15 K/ L 0.00-0.50 TOTAL COUNTED (BEAKER) (test sjwm=3900) 100 PLT MORPHOLOGY (BEAKER) (test zues=742) Normal ATYPICAL LYMPHS(BEAKER) (test pcsn=8533) Present POLYCHROMATOPHILLIC RBCS(BEAKER) (test duem=551) 1+ few SICKLE CELLS (BEAKER) (test zadj=258) 3+ many TARGET CELLS (BEAKER) (test doiy=160) 1+ few BASIC METABOLIC [id number] 06:21:00* Test Item Value Reference Range Comments SODIUM (BEAKER) (test xeeh=918) 137 meq/L 136-145 POTASSIUM (BEAKER) (test bgtc=872) 4.1 meq/L 3.5-5.1 CHLORIDE (BEAKER) (test esof=431) 106 meq/L 98-107 CO2 (BEAKER) (test iygi=803) 22 meq/L 22-29 BLOOD UREA NITROGEN (BEAKER) (test mgyu=468) 8 mg/dL 7-21 CREATININE (BEAKER) (test zund=636) 0.66 mg/dL 0.57-1.25 GLUCOSE RANDOM (BEAKER) (test awsn=808) 90 mg/dL 70-105 CALCIUM (BEAKER) (test uhuw=395) 9.0 mg/dL 8.4-10.2 EGFR (BEAKER) (test cmaw=6726) 124 mL/min/1.73 sq m ESTIMATED GFR IS NOT ACCURATE CREATININE CLEARANCE IN PREDICTING GLOMERULAR FILTRATION RATE. ESTIMATED GFR IS NOT APPLICABLE FOR DIALYSIS PATIENTS. Specimen moderately ictericURINALYSIS W/ [id number] 02:17:00* Test Item Value Reference Range Comments COLOR (BEAKER) (test opjj=427) Yellow CLARITY (BEAKER) (test qnke=616) Hazy SPECIFIC GRAVITY UA (BEAKER) (test dnhx=465) 1.008 1.001-1.035 PH UA (BEAKER) (test ihrw=563) 7.0 5.0-8.0 PROTEIN UA (BEAKER) (test oocz=852) Negative Negative GLUCOSE UA (BEAKER) (test ckyc=166) Negative Negative KETONES UA (BEAKER) (test mhty=763) Negative Negative BILIRUBIN UA (BEAKER) (test madp=793) Negative Negative BLOOD UA (BEAKER) (test izpt=120) Small Negative NITRITE UA (BEAKER) (test bhaj=100) Negative Negative LEUKOCYTE ESTERASE UA (BEAKER) (test eqyv=587) Negative Negative UROBILINOGEN UA (BEAKER) (test yjuo=611) 3.0 mg/dL 0.2-1.0 RBC UA (BEAKER) (test zhhs=936) 6 /HPF WBC UA (BEAKER) (test uyok=848) 2 /HPF BACTERIA (BEAKER) (test yayq=997) Rare SQUAMOUS EPITHELIAL (BEAKER) (test aqxi=727) 2 /HPF AMORPHOUS CRYSTALS (BEAKER) (test blxl=9574) Rare SOURCE(BEAKER) (test ieyh=3294) Urine, Clean Catch RETICULOCYTE [id number] 02:08:00* Test Item Value Reference Range Comments RETICULOCYTE COUNT PCT (BEAKER) (test vgbo=427) 11.6 % 0.4-2.9 SCREEN, [id number] 01:59:00* Test Item Value Reference Range Comments TEST URINE (BEAKER) (test rbmc=732) Negative CBC W/PLT COUNT & AUTO [id number] 01:35:00* Test Item Value Reference Range Comments WHITE BLOOD CELL COUNT (BEAKER) (test iiei=668) 13.6 K/ L 4.0-10.0 RED BLOOD CELL COUNT (BEAKER) (test jskw=080) 2.20 M/ L 4.00-5.00 HEMOGLOBIN (BEAKER) (test ntth=775) 8.5 GM/DL 12.0-15.0 HEMATOCRIT (BEAKER) (test tmcp=185) 23.5 % 36.0-45.0 MEAN CORPUSCULAR VOLUME (BEAKER) (test spyx=705) 107.0 fL 82.0-99.0 MEAN CORPUSCULAR HEMOGLOBIN (BEAKER) (test bwxx=410) 38.6 pg 27.0-33.0 MEAN CORPUSCULAR HEMOGLOBIN CONC (BEAKER) (test vxzm=743) 36.1 GM/DL 32.0- 36.0 RED CELL DISTRIBUTION WIDTH (BEAKER) (test modw=441) 17.8 % 10.3-14.2 PLATELET COUNT (BEAKER) (test jlfy=768) 439 K/CU MM 150-430 MEAN PLATELET VOLUME (BEAKER) (test uzdd=107) 6.8 fL 6.5-10.5 NUCLEATED RED BLOOD CELLS (BEAKER) (test udyu=037) 0 /100 WBC 0-0 NEUTROPHILS RELATIVE PERCENT (BEAKER) (test dwvb=444) 56 % LYMPHOCYTES RELATIVE PERCENT (BEAKER) (test vlns=558) 33 % MONOCYTES RELATIVE PERCENT (BEAKER) (test lmxs=566) 9 % EOSINOPHILS RELATIVE PERCENT (BEAKER) (test jobv=168) 2 % BASOPHILS RELATIVE PERCENT (BEAKER) (test hygy=043) 0 % NEUTROPHILS ABSOLUTE COUNT (BEAKER) (test eqsz=418) 7.55 K/ L 1.80-8.00 LYMPHOCYTES ABSOLUTE COUNT (BEAKER) (test tawf=967) 4.52 K/ L 1.48-4.50 MONOCYTES ABSOLUTE COUNT (BEAKER) (test eniq=503) 1.18 K/ L 0.00-1.30 EOSINOPHILS ABSOLUTE COUNT (BEAKER) (test fnic=273) 0.27 K/ L 0.00-0.50 BASOPHILS ABSOLUTE COUNT (BEAKER) (test wyoy=201) 0.05 K/ L 0.00-0.20 0.001.100.000.000.000.000.000.000.500.000.000.000.000.00BASI METABOLIC [id number] 01:29:00* Test Item Value Reference Range Comments SODIUM (BEAKER) (test ahnm=096) 139 meq/L 136-145 POTASSIUM (BEAKER) (test xpch=822) 3.9 meq/L 3.5-5.1 CHLORIDE (BEAKER) (test ywyx=378) 106 meq/L 98-107 CO2 (BEAKER) (test ixpa=387) 24 meq/L 22-29 BLOOD UREA NITROGEN (BEAKER) (test yfja=214) 10 mg/dL 7-21 CREATININE (BEAKER) (test bgms=467) 0.60 mg/dL 0.57-1.25 GLUCOSE RANDOM (BEAKER) (test twxk=501) 87 mg/dL 70-105 CALCIUM (BEAKER) (test hldr=749) 9.2 mg/dL 8.4-10.2 EGFR (BEAKER) (test pbdz=8811) 138 mL/min/1.73 sq m ESTIMATED GFR IS NOT ACCURATE CREATININE CLEARANCE IN PREDICTING GLOMERULAR FILTRATION RATE. ESTIMATED GFR IS NOT APPLICABLE FOR DIALYSIS PATIENTS. Specimen moderately icteric
--- OUTSIDE RECORDS SUMMARY | 2018-01-01 05:44 | XMS REPORT | Clinical Summary ---
Author Author CHRISTINE [facility] Address Unknown Phone Unavailable Care Team Providers [employer] Name Role Phone PCP Unavailable Allergies No Known Allergies Current Medications Prescription Sig. Disp. Refills Start End Date Status Date folic acid (FOLVITE) 1 MG Take 1 mg by mouth daily. Active tablet HYDROcodone-acetaminophen Take 1-2 tablets by mouth 30 tablet 0 Active (NORCO 10-325) 10-325 mg every 4 (four) hours as 17 per tablet needed for Pain. Max Daily Amount: 12 tablets oxyCODONE (OXYCONTIN) 80 Take 80 mg by mouth every Active MG 12 hr tablet 12 (twelve) hours. hydroxyurea (DROXIA) 500 Take 1 capsule (500 mg 0 08/05/20 Active mg capsule total) by mouth daily. 17 albuterol HFA (VENTOLIN Inhale 2 puffs by mouth 04/23/20 Discontin HFA) 90 mcg/actuation via inhaler. 17 ued inhaler fentaNYL (DURAGESIC) 75 Place 1 patch onto the 04/23/20 Discontin mcg/hr patch skin. 17 ued HYDROcodone-acetaminophen Take 1 tablet by mouth. 04/25/20 Discontin (NORCO 10-325) 10-325 mg 17 ued per tablet HYDROmorphone (DILAUDID) Take 2 mg by mouth. 04/25/20 Discontin 2 MG tablet 17 ued hydroxyurea (DROXIA) 500 Take 500 mg by mouth 2 08/05/20 Discontin mg capsule (two) times daily . 17 ued oxyCODONE (OXYCONTIN) 20 Take 5 tablets (100 mg 0 04/26/20 05/26/20 MG 12 hr tablet total) by mouth every 12 17 17 (twelve) hours for 30 days. Max Daily Amount: 200 mg Active Problems Problem Noted Date Sickle cell anemia with crisis ([facility]) 11/14/2017 Sickle cell pain crisis ([facility]) 04/23/2017 Encounters Date Type Specialty Care Team Description 11/14/2017 Hospital Oncology Travon Miller MD Sickle cell anemia with - Encounter Tammie Chiu crisis ([facility]) (Primary Dx) 11/18/2017 MD Mg 10/16/2017 Emergency Emergency Medicine George Arambula MD Sickle cell crisis ([facility]) (Primary Dx);Sickle cell pain crisis ([facility]);Tachycardia 10/16/2017 Orders Only General Internal Medicine 08/01/2017 Hospital Cardiology Eyad Nava MD Sickle cell pain crisis - Encounter Navi Proctor MD ([facility]) (Primary Dx) 08/05/2017 Mauricio Bowens MD 04/23/2017 Orders Only General Internal Medicine 04/22/2017 [facility] Oncology Nikunj Alexandre MD Sickle cell pain crisis - Encounter Mart Leon MD ([facility]) (Primary Dx) 04/26/2017 after 12/31/2016 Immunizations Name Dates Previously Given Next Due Influenza Three-TIV PF 5+ 08/05/2017 YR Social History Tobacco Use Types Packs/Day Years Used Date Never Smoker Smokeless Tobacco: Never Used Alcohol Use Drinks/Week oz/Week Comments No Sex Assigned at Date Recorded Not on file Last Filed Vital Signs Vital Sign Reading Time Taken Blood Pressure 107/51 11/18/2017 7:00 AM [employer] Pulse 86 11/18/2017 7:00 AM [employer] Temperature 36.7 C (98 F) 11/18/2017 7:00 AM [employer] Respiratory Rate 18 11/18/2017 7:00 AM [employer] Oxygen Saturation 96% 11/18/2017 7:00 AM [employer] Inhaled Oxygen - - Concentration Weight 62.5 kg (137 lb 12.6 oz) 11/14/2017 9:56 AM [employer] Height 167.6 cm (5' 6") 11/14/2017 9:56 AM [employer] Body Mass Index 22.24 11/14/2017 9:56 AM [employer]ICE [employer] Plan of Treatment Health Maintenance Due Date Last Done Comments INFLUENZA VACCINE Completed 08/05/2017 Results * Manual Differential (11/18/2017 5:52 AM) Only the most recent of 11 results within the time period is included. Component Value Ref Range Total Counted WBC Morphology Normal Platelet Morphology Normal Polychromasia 1+ few Sickle Cells 3+ many Target Cells 1+ few Specimen Performing Laboratory Blood - Central Venous [facility] [address] [place] [address] * CBC with platelet count + automated diff (11/18/2017 5:52 AM) Only the most recent of 12 results within the time period is included. Component Value Ref Range WBC 14.0 (H) 3.5 - 10.5 K/ L RBC 2.18 (L) 3.93 - 5.22 M/ L Hemoglobin 7.6 (L) 11.2 - 15.7 GM/DL Hematocrit 21.3 (L) 34.1 - 44.9 % MCV 97.7 (H) 79.4 - 94.8 fL MCH 34.9 (H) 25.6 - 32.2 pg MCHC 35.7 (H) 32.2 - 35.5 GM/DL RDW 19.6 (H) 11.7 - 14.4 % Platelets 321 150 - 450 K/CU MM MPV 10.5 9.4 - 12.3 fL nRBC 2 (H) 0 - 0 /100 WBC % Neutros 44 % % Lymphs 41 % % Monos 10 % % Eos 4 % % Baso 1 % # Neutros 6.10 1.56 - 6.13 K/ L # Lymphs 5.80 (H) 1.18 - 3.74 K/ L # Monos 1.36 (H) 0.24 - 0.36 K/ L # Eos 0.57 (H) 0.04 - 0.36 K/ L # Baso 0.07 0.01 - 0.08 K/ L Immature 1 0 - 1 % Granulocytes-Relative Specimen Performing Laboratory Blood - Central Venous [facility] [address] [place] [address] * CBC with platelet count + automated diff (11/18/2017 5:52 AM) Only the most recent of 12 results within the time period is included. Specimen Performing Laboratory Blood Narrative The following orders were created for panel order CBC with platelet count + automated diff. Procedure Abnormality Status --------- - ------ CBC with platelet count ...[[id number]]AbnormalFinal result Manual Differential[[id number]] Final result Please view results for these tests on the individual orders. * Magnesium (11/18/2017 5:52 AM) Only the most recent of 7 results within the time period is included. Component Value Ref Range Magnesium 1.7 1.6 - 2.6 mg/dL Specimen Performing Laboratory Blood - Central Venous [facility] [address] [place] [address] * Basic Metabolic Panel (11/18/2017 5:52 AM) Only the most recent of 13 results within the time period is included. Component Value Ref Range Sodium 136 136 - 145 meq/L Potassium 3.5 3.5 - 5.1 meq/L Chloride 108 (H) 98 - 107 meq/L CO2 21 (L) 22 - 29 meq/L BUN 8 7 - 21 mg/dL Creatinine 0.50 (L) 0.57 - 1.25 mg/dL Glucose 80 70 - 105 mg/dL Calcium 8.9 8.4 - 10.2 mg/dL EGFR 170Comment: ESTIMATED GFR IS NOT ACCURATE mL/min/1.73 sq m CREATININE CLEARANCE IN PREDICTING GLOMERULAR FILTRATION RATE. ESTIMATED GFR IS NOT APPLICABLE FOR DIALYSIS PATIENTS. Specimen Performing Laboratory Blood - Central Venous [facility] Line [address] [place] [address] Narrative Specimen moderately icteric * Reticulocyte count (11/16/2017 6:13 AM) Only the most recent of 7 results within the time period is included. Component Value Ref Range % Retic 17.7 (H) 0.5 - 1.7 % Specimen Performing Laboratory Blood - Arm, Left [address] [address] * Lactate dehydrogenase (LDH) (11/16/2017 6:13 AM) Component Value Ref Range LDH 461 (H) 125 - 220 U/L Specimen Performing Laboratory Blood - Arm, Left [address] [address] * XR chest 1 view portable / bedside (11/14/2017 5:53 AM) Only the most recent of 3 results within the time period is included. Specimen Performing Laboratory GE RIS Narrative FINAL REPORT EXAMINATION:AP PORTABLE CHEST RADIOGRAPH CLINICAL INDICATION: Shortness of [...] evidence of a pneumothorax. Signed: Jovani Monae MD Report Verified Date/Time:11/14/2017 06:00:33 Reading Location: [address] Reading Room Procedure Note Interface, External Ris In - 11/14/2017 6:02 AM [employer]ICE [employer]IER FINAL REPORT EXAMINATION: AP PORTABLE CHEST RADIOGRAPH CLINICAL [...] evidence of a pneumothorax. Signed: Jovani Monae MD Report Verified Date/Time: 11/14/2017 06:00:33 Reading Location: [address] Reading Room * Urinalysis w/Microscopic - Clean Catch (11/14/2017 5:28 AM) Only the most recent of 3 results within the time period is included. Component Value Ref Range Color, UA Yellow Clarity, UA Clear Specific [place], UA 1.008 1.001 - 1.035 pH, UA 7.0 5.0 - 8.0 Protein, UA 50 mg/dL (A) Negative Glucose, UA Negative Negative Ketones, UA Negative Negative Bilirubin, UA Negative Negative Blood, UA Small (A) Negative Nitrite, UA Negative Negative Leukocytes, UA Negative Negative Urobilinogen, UA 6.0 (H) 0.2 - 1.0 mg/dL RBC, UA 2 /HPF WBC, UA <1 /HPF Bacteria, UA Occasional Squam Epithel, UA 1 /HPF Specimen Source Urine, Clean Catch Specimen Performing Laboratory Urine - Urine, Clean [facility] Catch [address] [place] [address] * Urine culture (11/14/2017 5:28 AM) Component Value Ref Range Result Result >100,000 col/mL Escherichia coli (A) Specimen Performing Laboratory Urine - Urine, Clean [facility] Catch [address] [place] [address] Narrative >100,000 col/mL skin rick Organism Antibiotic Method Susceptibility Escherichia coli Amikacin <=2: Susceptible Escherichia coli Ampicillin + Sulbactam >=32: Resistant Escherichia coli Aztreonam <=1: Susceptible Escherichia coli Cefepime <=1: Susceptible Escherichia coli Cefoxitin <=4: Susceptible Escherichia coli Ceftazidime <=1: Susceptible Escherichia coli Ceftriaxone <=1: Susceptible Escherichia coli Ertapenem <=0.5: Susceptible Escherichia coli Gentamicin <=1: Susceptible Escherichia coli Levofloxacin <=0.12: Susceptible Escherichia coli Meropenem <=0.25: Susceptible Escherichia coli Nitrofurantoin <=16: Susceptible Escherichia coli Piperacillin + Tazobactam <=4: Susceptible Escherichia coli Tetracycline <=1: Susceptible Escherichia coli Tobramycin <=1: Susceptible Escherichia coli Trimethoprim + <=20: Susceptible Sulfamethoxazole * Blood culture (11/14/2017 4:03 AM) Component Value Ref Range Result No growth in 5 days Specimen Performing Laboratory Blood - Arm, Left [address] [address] * POC-Glucose meter (11/14/2017 2:45 AM) Component Value Ref Range POC-Glucose Meter 130 (H)Comment: TESTED AT [address] 70 - 110 mg /dL [facility] [address] Specimen Performing Laboratory Blood [address] [address] * POC-Lactic Acid, Venous (10/16/2017 12:01 PM) Component Value Ref Range POC-Lactic Acid, Venous <0.3 (L)Comment: OUTSIDE MEASURING RANGETESTED AT 0.9 - 1.7 mmol/L [address] [address] Specimen Performing Laboratory Blood [address] [address] * ECG 12 lead (10/16/2017 1:36 AM) Only the most recent of 2 results within the time period is included. Specimen Performing Laboratory GE MUSE Narrative Ventricular Rate 106 BPM Atrial Rate 106 BPM P-R Interval 146 ms QRS Duration 88 ms Q-T Interval 340 ms QTC Calculation(Bazett) 451 ms P Cody 58 degrees R Cody 40 degrees T Cody -[address] depressin and T wave inversion inferior leads + V3-V6 consider subendocardial ischemia Abnormal ECG When compared with ECG of 23-APR-2017 00:20, T wave inversion now evident in Inferior leads ST depression andT wave inversion now evident in Anterior leads QT has shortened Confirmed by MD LEA YOCHAI ([id number]) on 10/16/2017 6:36:34 AM Procedure Note Interface, External Ris In - 10/16/2017 6:36 AM [employer]ICE [employer] Ventricular Rate 106 BPM Atrial Rate 106 BPM P-R Interval 146 ms QRS Duration 88 ms Q-T Interval 340 ms QTC Calculation(Bazett) 451 ms P Cody 58 degrees R Cody 40 degrees T Cody -[address] depressin and T wave inversion inferior leads + V3-V6 consider subendocardial ischemia Abnormal ECG When compared with ECG of 23-APR-2017 00:20, T wave inversion now evident in Inferior leads ST depression and T wave inversion now evident in Anterior leads QT has shortened Confirmed by MD LEA YOCHAI ([id number]) on 10/16/2017 6:36:34 AM * XR chest 2 views (10/15/2017 11:23 PM) Specimen Performing Laboratory GE RIS Narrative FINAL REPORT Chest, two views HISTORY: Sickle cell COMPARISON: 07/25/1717 DISCUSSION: Mild interstitial edema. No focal consolidation. No large pleural effusion or pneumothorax. Cardiomediastinal silhouette is within normal limits. There is mild eventration of the left hemidiaphragm. Left-sided arm port catheter tip terminates at the SVC/RA junction. Surgical clips in the right upper quadrant. IMPRESSION: Mild interstitial edema. No focal consolidation. Signed: Lopez Dunham MD Report Verified Date/Time:10/15/2017 23:38:18 Reading Location: [address] Consult Reading Room Procedure Note Interface, External Ris In - 10/15/2017 11:40 PM [employer]ICE [employer] FINAL REPORT Chest, two views HISTORY: Sickle cell COMPARISON: 07/25/1717 DISCUSSION: Mild interstitial edema. No focal consolidation. No large pleural effusion or pneumothorax. Cardiomediastinal silhouette is within normal limits. There is mild eventration of the left hemidiaphragm. Left-sided arm port catheter tip terminates at the SVC/RA junction. Surgical clips in the right upper quadrant. IMPRESSION: Mild interstitial edema. No focal consolidation. Signed: Lopez Dunham MD Report Verified Date/Time: 10/15/2017 23:38:18 Reading Location: [facility] C0[facility] Consult Reading Room * Phosphorus (08/05/2017 4:19 AM) Only the most recent of 3 results within the time period is included. Component Value Ref Range Phosphorus 3.1 2.3 - 4.7 mg/dL Specimen Performing Laboratory Blood - Central Venous [facility] [address] [place] [address] * TRANSFUSION SERVICE REPORT - SCAN (08/04/2017 5:41 PM) Only the most recent of 2 results within the time period is included. * Prepare Leuko-Red RBC (08/03/2017 11:54 PM) Only the most recent of 2 results within the time period is included. Component Value Ref Range CROSSMATCH COMPATIBLE Unit ABO O Neg UNIT NUMBER [id number] Status TRANSFUSED Blood Bank Product RED BLOOD CELLS PRODUCT CODE [id number] Specimen Performing Laboratory Other [facility] [place] * US abdomen limited (08/02/2017 11:35 PM) Specimen Performing Laboratory GE RIS Narrative FINAL REPORT INDICATION: Concern for cirrhosis given fluid overload COMPARISON: None TECHNIQUE:Real-time transabdominal monge scale and color Doppler ultrasound of the abdominal right upper quadrant. FINDINGS: Liver: Size: 17.9cm. Echogenicity: Normal. Masses/lesions: None. Surface [...] or surface nodularity. Signed: JR Todd Robert MD Report Verified Date/Time:08/03/2017 00:40:19 Reading Location: [address] Body Reading Room Procedure Note Interface, External Ris In - 08/03/2017 12:42 AM CDT FINAL REPORT INDICATION: Concern for cirrhosis given fluid overload COMPARISON: None TECHNIQUE: Real-time transabdominal monge scale and color Doppler ultrasound of the abdominal right upper quadrant. FINDINGS: Liver: Size: 17.9cm. Echogenicity: Normal. Masses/lesions: None. Surface [...] or surface nodularity. Signed: JR Todd Robert MD Report Verified Date/Time: 08/03/2017 00:40:19 Reading Location: [facility] [id number] CT Body Reading Room * Transfuse Leuko-Red RBC (08/02/2017 9:42 PM) Only the most recent of 2 results within the time period is included. * Type and screen, automated (08/02/2017 11:20 AM) Only the most recent of 2 results within the time period is included. Component Value Ref Range ABO/RH AUTOMATED (BEAKER) A POSITIVE Ab Scrn NEGATIVE Specimen Performing Laboratory Blood [facility] [address] [place] [address] * Prothrombin time/INR (08/02/2017 6:45 AM) Component Value Ref Range Protime 15.4 (H) 11.7 - 14.7 seconds INR 1.2 <=5.9 Specimen Performing Laboratory Blood - Central Venous [facility] [address] [place] [address] Narrative RECOMMENDED COUMADIN/WARFARIN INR THERAPY RANGES STANDARD DOSE: 2.0 - 3.0 Includes: PROPHYLAXIS for venous thrombosis, systemic embolization; TREATMENT for venous thrombosis and/or pulmonary embolus. HIGH RISK: Target INR is 2.5-3.5 for patients with mechanical heart valves. * B-type Natriuretic Factor (BNP) (08/02/2017 6:45 AM) Component Value Ref Range BNP 44 0 - 100 pg/mL Specimen Performing Laboratory Blood - Central Venous [facility] [address] [place] [address] * Hepatic function panel (08/02/2017 6:45 AM) Component Value Ref Range Protein, Total 7.1 6.0 - 8.3 gm/dL Albumin 3.7 3.5 - 5.0 g/dL Total Bilirubin 4.1 (H) 0.2 - 1.2 mg/dL Bilirubin, Direct 0.6 (H) 0.1 - 0.5 mg/dL Alkaline Phosphatase 86 40 - 150 U/L AST 40 (H) 5 - 34 U/L ALT 35 6 - 55 U/L Specimen Performing Laboratory Blood - Central Venous [facility] [address] [place] [address] Narrative Specimen slightly icteric * CBC (Hemogram only) (04/26/2017 10:06 AM) Component Value Ref Range WBC 11.5 (H) 4.0 - 10.0 K/ L RBC 1.97 (L) 4.00 - 5.00 M/ L Hemoglobin 7.4 (L) 12.0 - 15.0 GM/DL Hematocrit 21.9 (L) 36.0 - 45.0 % MCV 111.0 (H) 82.0 - 99.0 fL MCH 37.2 (H) 27.0 - 33.0 pg MCHC 33.6 32.0 - 36.0 GM/DL RDW 22.9 (H) 10.3 - 14.2 % Platelets 347 150 - 430 K/CU MM MPV 7.4 6.5 - 10.5 fL nRBC 18 (H) 0 - 0 /100 WBC Specimen Performing Laboratory Blood - Line, Venous [address] [address] Narrative 0.00 0.60 0.00 0.00 1.10 0.00 0.00 0.00 0.00 0.00 0.00 0.90 0.00 0.00 0.00 0.00 0.00 0.00 0.00 0.00 0.00 0.00 0.00 0.00 0.00 0.00 0.00 * Screen, urine (04/23/2017 12:16 AM) Component Value Ref Range Preg Test, Ur Negative Specimen Performing Laboratory Urine - Urine, Clean [facility] Catch [address] [place] [address] after 12/31/2016
[2018-01-01] MEDS ORDERED: SODIUM CHLORIDE 0.9% 1000ML 1,000 ML IV SCH (06:45)
[2018-01-01] MEDS ORDERED: FAMOTIDINE 20 MG/2 ML VIAL IV ONE (08:00)
[2018-01-01] MEDS ORDERED: SODIUM CHLORIDE 0.9% 1000ML 1,000 ML ONE (08:00)
[2018-01-01] MEDS ORDERED: DIPHENHYDRAMINE HCL 25 MG CAP PO ONE (08:00)
[2018-01-01] MEDS ORDERED: KETOROLAC TROMETHAMINE 30 MG/ML VIAL IV ONE (08:00)
[2018-01-01] MEDS ORDERED: MORPHINE SULFATE 4 MG/ML SYR IV ONE ×3 (08:00→09:00)
[2018-01-01 08:10] LABS: MEAN CORPUSCULAR HEMOGLOBIN 36.3 pg (28-32); MEAN CORPUSCULAR HGB CONC 37.9 g/dL (31-35); MEAN CORPUSCULAR VOLUME 95.8 fL (81-99); PLATELET COUNT 333 x10e3/uL (140-360); RED BLOOD COUNT 2.12 x10e6/uL (3.6-5.1); RED CELL DISTRIBUTION WIDTH 17.3 % (11.7-14.4)
[2018-01-01 08:18] LABS: HEMATOCRIT 20.3 % (34.2-44.1); HEMOGLOBIN 7.7 g/dL (12.0-16.0)
[2018-01-01 08:29] LABS: ANISOCYTOSIS MARKED; EOSINOPHILS % (MANUAL) 2 % (0-7); HYPOCHROMASIA MODERATE; LYMPHOCYTES % (MANUAL) 51 % (19-48); METAMYELOCYTES % (MANUAL) 3 % (0-0); MONOCYTES % (MANUAL) 9 % (3.4-9.0); NEUTROPHILS % (MANUAL) 35 % (40-74); PLATELET ESTIMATE ADEQUATE; POIKILOCYTOSIS MODERATE; RBC MORPHOLOGY COMMENT ABNORMAL
[2018-01-01 08:30] LABS: HOWELL-JOLLY BODIES FEW; PLATELET MORPHOLOGY COMMENT NORMAL
[2018-01-01 11:35] VITALS: BP 126/65
== END 2018-01-01 10:30 | disposition home or self-care (01) ==
LOC: FSED 05:41
DX: M54.2 Cervicalgia (principal); M54.6 Pain in thoracic spine; M54.42 Lumbago with sciatica, left side; M54.41 Lumbago with sciatica, right side; D57.1 Sickle-cell disease without crisis
CPT/HCPCS: 36415; 71046; 80053; 81003; 81025; 85007; 85025; 85027; 85045; 99283; J1885; J2270; J7030